=== PATIENT | female | born 1985 | race Caucasian/White ===

== ENCOUNTER 2016-12-04 10:45 | Outpatient (RCR) | payer BC, OTHER ==
[~2016-12-04 10:45] MED LIST: ALPR0.5T72 PO; ARMO250T3 PO; CODE1CAP20 PO; DESV100T PO; NAPR-243 PO; PHEN95TA30 PO; SULF1TAB38 PO
== END 2017-03-04 | disposition home or self-care (01) ==
LOC: CARD 10:45
PROVIDERS: ATTEND Internal Medicine Cardiovascular Disease
DX: R07.9 Chest pain, unspecified (principal)
CPT/HCPCS: 93225; 93226

== ENCOUNTER 2017-04-05 09:30 | Outpatient (RCR) | payer OTHER | END 2017-06-06 | disposition home or self-care (01) | LOC: CARD 09:30 | PROVIDERS: ATTEND Internal Medicine Cardiovascular Disease | DX: R07.9 Chest pain, unspecified (principal); R00.2 Palpitations; R00.8 Other abnormalities of heart beat; Z72.0 Tobacco use | CPT/HCPCS: 93270 ==

== ENCOUNTER → 2017-12-05 | Outpatient (CLI) | payer OTHER | LOC: CARD 09:51 | PROVIDERS: ATTEND Internal Medicine Interventional Cardiology | DX: I49.1 Atrial premature depolarization (principal); R00.2 Palpitations; I49.3 Ventricular premature depolarization; R00.8 Other abnormalities of heart beat; R00.0 Tachycardia, unspecified | CPT/HCPCS: 93225; 93226 ==

== ENCOUNTER → 2018-02-10 | Outpatient (CLI) | payer OTHER ==
--- NOTE | 2018-02-10 16:02 | Diagnostic Imaging Report ---
PROCEDURE: US Non-ob pelvis comp/trans. TECHNIQUE: Multiple real-time grayscale images were obtained of the pelvis in various projections endovaginally. Transabdominal imaging was also performed. INDICATION: Dysfunctional uterine bleeding. FINDINGS: Uterus measures 7.6 x 4.7 x 3.9 cm. Endometrium is 5 mm in thickness. No myometrial mass is seen. There is a small cervical nabothian cyst. Right ovary measures 3.3 x 3.4 x 2.0 cm and the left ovary measures 3.8 x 2.9 x 1.9 cm. Both ovaries contain small follicles. There is blood flow bilaterally. No adnexal mass or free fluid is seen. IMPRESSION: Unremarkable pelvic ultrasound. Dictated by: Dictated on workstation # [id number]
== END ==
LOC: RAD 11:57
PROVIDERS: ATTEND Nurse Practitioner
DX: N93.8 Other specified abnormal uterine and vaginal bleeding (principal); N94.6 Dysmenorrhea, unspecified
CPT/HCPCS: 76830; 76856

== ENCOUNTER → 2018-12-29 | Outpatient (CLI) | payer BC, OTHER ==
[2018-12-29 11:55] VITALS: BP 103/63
--- NOTE | 2018-12-29 11:55 | Cardiology Stress Test Report ---
Stress Test Report Date of Procedure/Referring: Date of Procedure: Dec 29, 2018 PCP John Hawk MD Admitting Physician Malcolm Yeager DO Indications: Palpitation, chest pain Baseline Heart Rate: 67 Baseline Blood Pressure: Blood Pressure Systolic: 103 Blood Pressure Diastolic: 63 Baseline EKG: Baseline EKG: normal sinus rhythm Summary/Conclusion: Summary: In summary, the patient started exercising with a baseline heart rate, blood pressure and EKG mentioned above Patient was able to exercise for a total of 7:30 minutes on Giovanni protocol, 9.1 METs Maximum heart rate 163 Maximum blood pressure 159/84 Stress EKG Minimal nondiagnostic changes Recovery EKG Return to baseline Conclusion: 1. Good exercise tolerance for a total of 7:30 minutes on Giovanni protocol, 9.1 METs, achieving 86 percent of maximum expected heart rate 2. Minimal nondiagnostic EKG changes with exercise returned to baseline during recovery 3. No arrhythmia was noted JOHN HAWK MD Dec 29, 2018 11:55 POS
== END ==
LOC: CARD 10:00
PROVIDERS: ATTEND Internal Medicine Cardiovascular Disease
DX: I49.3 Ventricular premature depolarization (principal); I49.1 Atrial premature depolarization; R00.2 Palpitations
CPT/HCPCS: 93017

== ENCOUNTER → 2020-07-05 | Outpatient (CLI) | payer BC | LOC: CARD 12:41 | PROVIDERS: ATTEND Internal Medicine Cardiovascular Disease | DX: I10 Essential (primary) hypertension (principal); I25.10 Atherosclerotic heart disease of native coronary artery without angina pectoris | CPT/HCPCS: 93306 ==

== ENCOUNTER → 2020-08-10 | Outpatient (CLI) | payer BC ==
[2020-08-10 14:18] VITALS: BP 118/62
--- NOTE | 2020-08-10 16:52 | Cardiology Stress Test Report ---
Stress Test Report Date of Procedure/Referring: Date of Procedure: Aug 10, 2020 PCP Lisbeth Antony Admitting Physician Malcolm Yeager DO Indications: PHILLIP Baseline Heart Rate: 99 Baseline Blood Pressure: Blood Pressure Systolic: 118 Blood Pressure Diastolic: 62 Baseline EKG: Baseline EKG: NSR Summary/Conclusion: Summary: In summary, the patient started exercising with a baseline heart rate, blood pressure and EKG mentioned above Patient was able to exercise for a total of 6 minutes on Giovanni protocol, METs 7.3 Maximum heart rate 163 Maximum blood pressure 195/57 Stress EKG, Minimal nondiagnostic changes Recovery EKG , Return to baseline Conclusion: 1. Good exercise tolerance for a total of 6 minutes on Giovanni protocol, 7.3 METs, achieving 87 percent of maximum expected heart rate 2. Minimal nondiagnostic EKG changes with exercise returned to baseline during recovery 3. No arrhythmia was noted JOHN ROMAN MD Aug 10, 2020 16:52
== END ==
LOC: CARD 14:00
PROVIDERS: ATTEND Physician Assistant
DX: R06.09 Other forms of dyspnea (principal)
CPT/HCPCS: 93017

== ENCOUNTER 2021-02-06 19:50 | Emergency (ER) | payer BC ==
[~2021-02-06] VITALS: Ht 165 cm; Wt 84.0 kg
[2021-02-06 20:08] LABS: BILIRUBIN,URINE 2+ (NEGATIVE); CLARITY,URINE SL CLOUDY; COLOR,URINE RED; GLUCOSE, URINE (UA) 2+ (NEGATIVE); KETONES,URINE 1+ (NEGATIVE); LEUKOCYTE ESTERASE ,URINE 3+ (NEGATIVE); NITRITE,URINE POSITIVE (NEGATIVE); PH,URINE 6.5 (5-9); PROTEIN,URINE 3+ (NEGATIVE)
--- NOTE | 2021-02-06 20:11 | ED GU-Female ---
General Chief Complaint: - Reproductive Stated Complaint: PAINFUL URINATION/KIDNEY PAIN Source: patient History of Present Illness Date Seen by Provider: Feb 06, 2021 Time Seen by Provider: 19:57 Initial Comments PT ARRIVES VIA POV FROM HOME C/O PAIN AND BURNING ON URINATION X 1 MONTH PT STATES SHE WAS SEEN AT [facility] 1 WEEK AGO--01/30/21, DX WITH UTI AND PLACED ON UNKNOWN ANTIBIOTIC X 7 DAYS--JUST FINISHED YESTERDAY STATES SHE IS NOT BETTER ALSO HAVING DIFFUSE LOWER BACK PAIN AND SUPRAPUBIC PAIN NO FEVER OCCASIONAL NAUSEA, NO VOMITING HAS BEEN TAKING OTC AZO AND TYLENOL FOR SYMPTOMS--TOOK TYLENOL 1 HOUR AGO. HAS HAD UTI'S SINCE CHILDHOOD, NEVER SEEN UROLOGIST, BUT HAS AN APPOINTMENT WITH DR. BECKETT 02/15/21 LAST UTI WAS IN MARCH PER MED RECONCILIATION, PT WAS TREATED WITH CEFDINIR X 7 DAYS ON 01/23/21 PT RECEIVED MACROBID IN MARCH LMP--ENDED 1 WEEK AGO. NO CONTROL PT HAS NOT HAD COVID OR FLU VACCINE DENIES SICK CONTACTS PCP: MADAI WEISS AT DR. GARCIA'S OFFICE Allergies and Home Medications Allergies Coded Allergies: No Known Drug Allergies (Unverified Allergy, Mild, 08/24/08) No Known Allergies (Verified Allergy, Unknown, 04/22/06) Patient Home Medication List Home Medication List Reviewed: Yes Alprazolam (Alprazolam) 0.5 Mg Tab.rapdis, 1 EACH PO DAILY, (Reported) Entered as Reported by: SHASTA CASTILLO on 08/15/111217 Armodafinil (Nuvigil) 250 Mg Tablet, 250 MG PO, (Reported) Entered as Reported by: SHASTA CASTILLO on 08/15/111217 Codeine/Butalbit/Acetamin/Caff (Ikumml-Kswz-Vjorsmhxgud-Codein) 1 Each Capsule, 1 EACH PO, (Reported) Entered as Reported by: SHASTA CASTILLO on 08/15/111217 Desvenlafaxine Succinate (Pristiq) 100 Mg Tab.sr.24h, 100 MG PO, (Reported) Entered as Reported by: SHASTA CASTILLO on 08/15/111217 Levofloxacin (Levofloxacin) 500 Mg Tablet, 500 MG PO DAILY Prescribed by: LAURA ALVAREZ on 02/06/212027 Naproxen (Naprosyn) 500 Mg Tablet, 1 EACH PO BID PRN Prescribed by: STAN NELSON on 08/15/11 142 Phenazopyridine HCl (Pyridium) 200 Mg Tablet, 1 TAB PO TID Prescribed by: LAURA ALVAREZ on 02/06/212027 Phenazopyridine Hcl (Azo Standard) 95 Mg Tablet, 95 MG PO, (Reported) Entered as Reported by: SHASTA CASTILLO on 08/15/11 1218 Trimethoprim/Sulfamethoxazole (Bactrim Ds) 1 Ea Tablet, 1 EA PO BID Prescribed by: STAN NELSON on 08/15/11 142 Review of Systems Review of Systems Constitutional: no symptoms reported Respiratory: no symptoms reported Cardiovascular: no symptoms reported Gastrointestinal: see HPI, abdominal pain, nausea Genitourinary: see HPI, dysuria, flank pain : No LMP: Jan 25, 2021 Musculoskeletal: see HPI, back pain Skin: no symptoms reported Psychiatric/Neurological: No Symptoms Reported Endocrine: No Symptoms Reported Hematologic/Lymphatic: No Symptoms Reported Past Ecbxbul-Lflkjo-Dvwsoq Hx Patient Social History Tobacco Use?: Yes Smoking Status: Current Someday Smoker Substance use?: No Alcohol Use?: Yes Alcohol Frequency: Once in a while Past Medical History Surgeries: No Respiratory: No Cardiac: Yes Palpitations Neurological: No : No Reproductive Disorders: No Female Reproductive Disorders: Denies Genitourinary: Yes Bladder Infection Gastrointestinal: No Musculoskeletal: No Endocrine: No HEENT: No Cancer: No Psychosocial: Yes ADD/ADHD, Anxiety, Depression Integumentary: No Blood Disorders: No Physical Exam Vital Signs Vital Signs - First Documented 02/06/21 19:55 Temp 36.8 Pulse 63 Resp 16 B/P (MAP) 120/72 (88) Pulse Ox 97 O2 Delivery Room Air Capillary Refill : Height, Weight, BMI Height: '" Weight: lbs. oz. kg; BMI Method:Stated General Appearance: WD/WN, no apparent distress, other (WALKS UPRIGHT AND MOVES WITHOUT DIFFICULTY) Cardiovascular: regular rate, rhythm, no murmur Respiratory: normal breath sounds, no respiratory distress, no accessory muscle use Gastrointestinal: normal bowel sounds, soft, no organomegaly, no pulsatile mass, tenderness (SUPRAPUBIC TENDERNESS) Back: no vertebral tenderness, CVA tenderness (R), CVA tenderness (L) Extremities: normal inspection Neurologic/Psychiatric: weight count operator II-XII nml as tested, no motor/sensory deficits, alert, normal mood/affect, oriented x 3 Skin: normal color, warm/dry Progress/Results/Core Measures Suspected Sepsis SIRS Temperature: Pulse: Respiratory Rate: Blood Pressure / Mean: Results/Orders Lab Results Laboratory Tests Test 02/06/21 20:00 Range/Units Urine Color RED H Urine Clarity SL CLOUDY Urine pH 6.5 5-9 Urine Specific [place] 1.025 H 1.016-1.022 Urine Protein 3+ H NEGATIVE Urine Glucose (UA) 2+ H NEGATIVE Urine Ketones 1+ H NEGATIVE Urine Nitrite POSITIVE H NEGATIVE Urine Bilirubin 2+ H NEGATIVE Urine Urobilinogen >=8.0 < = 1.0 MG/DL Urine Leukocyte Esterase 3+ H NEGATIVE Urine RBC (Auto) TRACE-I H NEGATIVE Urine RBC 10-25 H /HPF Urine WBC TNTC H /HPF Urine Squamous Epithelial Cells >50 H /HPF Urine Crystals NONE /LPF Urine Bacteria LARGE H /HPF Urine Casts NONE /LPF Urine Mucus LARGE H /LPF Urine Culture Indicated YES Urine Test NEGATIVE NEGATIVE My Orders Orders - LAURA ALVAREZ DO Ua Culture If Indicated (02/06/21 19:57) Hcg,Qualitative Urine (02/06/21 20:05) Urine Culture (02/06/21 20:00) Ceftriaxone (Rocephin) (02/06/21 20:30) Lidocaine 1% Inj 20 Ml (Xylocaine 1% Inj (02/06/21 20:30) Vital Signs/I&O 02/06/21 19:55 Temp 36.8 Pulse 63 Resp 16 B/P (MAP) 120/72 (88) Pulse Ox 97 O2 Delivery Room Air Capillary Refill : Departure Impression Primary Impression: Urinary tract infection Disposition: HOME, SELF-CARE Condition: Stable Departure-Patient Inst. Decision time for Depature: 20:25 Referrals: NO,LOCAL PHYSICIAN (PCP) Primary Care Physician JONATHAN WEISS (Family) Primary Care Physician CHANNING BECKETT MD Patient Instructions: Urinary Tract Infection, Adult (DC) Add. Discharge Instructions: LOTS OF CLEAR LIQUIDS--WATER, BROTH, JELLO, GATORADE TYLENOL AND MOTRIN NEEDED FOR PAIN FOLLOW UP WITH DR. BECKETT SCHEDULED, RETURN TO ER IF SYMPTOMS WORSEN All discharge instructions reviewed with patient and/or family. Voiced understanding. Scripts Phenazopyridine HCl (Pyridium) 200 Mg Tablet 1 TAB PO TID, #15 TAB Prov: LAURA ALVAREZ DO 02/06/21 Levofloxacin (Levofloxacin) 500 Mg Tablet 500 MG PO DAILY, #10 TAB 0 Refills Prov: LAURA ALVAREZ DO 02/06/21 LAURA ALVAREZ DO Feb 06, 2021 20:11
[2021-02-06 20:20] LABS: BACTERIA,URINE LARGE /HPF; SQUAMOUS EPITHELIAL CELL,UR >50 /HPF; WBC,URINE TNTC /HPF
[2021-02-06] MEDS ORDERED: PHEN-640 PO (20:28)
[2021-02-06] MEDS ORDERED: LEVO500T81 PO (20:28)
[2021-02-06] MEDS ORDERED: LIDOCAINE 1% INJ 20 ML 20 ML VIAL INJ ONE (20:30)
[2021-02-06] MEDS ORDERED: cefTRIAXone 1,000 MG VIAL IM ONE (20:30)
[2021-02-06 20:44] VITALS: BP 116/74
== END 2021-02-06 20:44 | disposition home or self-care (01) ==
LOC: EDUNIT# 19:50 → ER 19:51
DX: N39.0 Urinary tract infection, site not specified (principal); F41.9 Anxiety disorder, unspecified; F32.9 Major depressive disorder, single episode, unspecified; F17.290 Nicotine dependence, other tobacco product, uncomplicated; Z79.899 Other long term (current) drug therapy
CPT/HCPCS: 81000; 84703; 87077; 87088; 87186; 99284